=== PATIENT | male | born 1970 | race African-American/Black ===

== ENCOUNTER 2021-01-01 07:58 | Emergency (ER) | payer OTHER ==
[~2021-01-01] VITALS: Ht 185.4 cm; Wt 102.1 kg
[2021-01-01] MEDS ORDERED: KETOROLAC TROMETHAMINE 60 MG/2 ML VIAL IM ONE (08:15)
[2021-01-01] MEDS ORDERED: HYDROCODONE/APAP 10MG-325MG TAB PO ONE (09:45)
[2021-01-01 10:27] VITALS: BP 161/107
== END 2021-01-01 10:29 | disposition home or self-care (01) ==
LOC: ER 08:26
DX: M51.26 Other intervertebral disc displacement, lumbar region (principal); X50.0XXA Overexertion from strenuous movement or load, initial encounter
CPT/HCPCS: 72131; 99283; J1885